=== PATIENT | female | born 1975 | race Caucasian/White ===

== ENCOUNTER 2019-10-14 07:01 | Emergency (ER) | payer MEDICAID, SELFPAY ==
[2019-10-14 07:29] VITALS: BP 186/109; PULSE 103; RESP 18; TEMP 37; O2SAT 97; BMI 43.3
[2019-10-14 07:45] LABS: Chloride 104 mmol/L (98-107); Potassium 3.9 mmoL/L (3.5-5.1); Sodium 139 mmol/L (136-145)
[2019-10-14 07:46] LABS: Basophils % 0.3 % (0.1-2.0); Eosinophils # 0.3 K/mm3 (0.0-0.4); Eosinophils % 2.1 % (0.1-12.0); Hematocrit 37.2 % (37.0-47.0); Hemoglobin 11.4 g/dL (12.2-16.2); Lymphocytes # 1.9 K/mm3 (0.7-4.5); Lymphocytes % 13.1 % (10-50); Mean Corpuscular HGB Conc 30.6 g/dL (31.8-35.4); Mean Corpuscular Hemoglobin 27.5 pg (27.0-31.2); Mean Corpuscular Volume 89.8 fl (81-99); Mean Platelet Volume 7.7 fl (7.4-10.4); Monocytes # 0.4 K/mm3 (0.1-1.0); Monocytes % 2.7 % (1.7-9.3); Neutrophils # 11.9 K/mm3 (1.8-7.8); Neutrophils % 81.8 % (37.0-80.0); Platelet Count 459 K/mm3 (142-424); Red Blood Count 4.15 M/mm3 (4.20-5.40); Red Cell Distribution Width 14.1 % (11.5-17.5); White Blood Count 14.5 K/mm3 (4.8-10.8)
--- NOTE | 2019-10-14 07:47 | PC.NURSE ---
Called [facility] and spoke with Jacinta in medical records, she will be sending pt records.
[2019-10-14 07:48] LABS: Alanine Aminotransferase 12 U/L (12-78); Albumin Level 3.9 g/dl (3.5-5.0); Albumin/Globulin Ratio 1.1 (1.1-1.8); Alkaline Phosphatase 125 U/L (38-126); Anion Gap 10.9 mEq/L (5-15); Aspartate Amino Transferase 17 U/L (14-36); Blood Urea Nitrogen 14 mg/dl (7-17); Carbon Dioxide 28 mmol/L (22.0-30.0); Creatinine Clearance Estimated 63 mL/min (50-200); Estimated Glomerular Filt Rate 68 ml/min (>60); GFR (African American) 82 ML/MIN (>60); Globulin 3.4 g/dL (1.3-3.2); Total Protein,Serum 7.3 g/dl (6.3-8.2)
[2019-10-14 07:49] LABS: Calcium 9.7 mg/dl (8.4-10.2); Glucose 100 mg/dl (74-100)
[2019-10-14 07:51] LABS: Lactic Acid 0.9 mmol/L (0.7-2.1)
[2019-10-14 07:54] LABS: C-Reactive Protein 185.1 mg/L (0-4)
[2019-10-14 08:11] LABS: Bilirubin,Total 0.1 mg/dl (0.2-1.3)
--- NOTE | 2019-10-14 08:18 | PC.NURSE ---
pt eating breakfast at this time.
--- NOTE | 2019-10-14 08:25 | PC.NURSE ---
Called [facility] back d/t not receiving medical records.
[2019-10-14 08:32] LABS: Erythrocyte Sedimentation Rate 128 mm/hr (0-20)
--- NOTE | 2019-10-14 08:47 | PC.NURSE ---
Spoke with Medical records again at [facility] and austyn stated that she would be printing and manually sending it at this time.
[2019-10-14 08:57] VITALS: BP 162/83; PULSE 97; O2SAT 100
--- NOTE | 2019-10-14 09:38 | PC.NURSE ---
Calling [facility] at this time for hospitalist, someone will return call per cd reactor operator head.
--- NOTE | 2019-10-14 09:48 | PC.NURSE ---
Dr Hendrix returned call.
--- NOTE | 2019-10-14 09:55 | PC.NURSE ---
calling [facility] at this time for transfer, pt has agreed to try them again after previously declining.
--- NOTE | 2019-10-14 10:02 | PC.NURSE ---
[facility] to return call.
--- NOTE | 2019-10-14 10:07 | PC.NURSE ---
Dr Monahan at [facility] returned call
--- NOTE | 2019-10-14 10:10 | PC.NURSE ---
pt refusing to go to [facility] by ambulance. pt tearful
--- NOTE | 2019-10-14 10:15 | PC.NURSE ---
dr pardo at bedside
--- NOTE | 2019-10-14 10:15 | HMH.EDGENADL ---
ED Disposition Clinical Impression: Cellulitis of both lower extremities Disposition: Xfer Short-Term Hosp Condition on Discharge: Good Instructions: DI for Chronic Pain -- Adult Additional Instructions: I called [facility] in [place] and got patient accepted contingent on the problem she did not want to go back to [facility]. They recommended that I call [facility] in [place] considering that is where she had her care. I did call [facility] in [place] spoke to vascular surgery and I also spoke to the hospitalist and they agreed to go ahead and accept the patient with admission and vascular surgery would consult. However once I presented this information to the patient she refused to go by ambulance refused IV antibiotics and also refused IV pain medicine and signed out AGAINST MEDICAL ADVICE. Referrals: Provider,Referral, [Primary Care Provider] - - Critical Care Critical Care Time: No Attestation: On 10/14/19, the high probability of a clinically significant, sudden or life threatening deterioration of the following system(s) required my full and direct attention, intervention and personal management. The time I documented below is in addition to time spent performing reported procedures but includes the following listed in this critical care notation. Medical Decision Making - Jakob Inquiry Pt receiving controlled substance: No Vital Signs: 10/14/19 07:29 10/14/19 08:57 Temperature 98.6 F Temperature Source Oral Pulse Rate [Left Radial] 103 H 97 H Respiratory Rate 18 Blood Pressure [Right Arm] 186/109 H 162/83 H Blood Pressure Mean [Right Arm] 134 109 Blood Pressure Source [Right Arm] Automatic Cuff Blood Pressure Position [Right Arm] Sitting Sitting 02 Sat by Pulse Oximetry 97 100 Oxygen Delivery Method Room Air Room Air - Lab Data Lab Results 10/14/19 07:25: WBC 14.5 H, RBC 4.15 L, Hgb 11.4 L, Hct 37.2, MCV 89.8, MCH 27.5, MCHC 30.6 L, RDW 14.1, Plt Count 459 H, MPV 7.7, Neut % (Auto) 81.8 H, Lymph % (Auto) 13.1, [place] % (Auto) 2.7, Eos % (Auto) 2.1, Baso % (Auto) 0.3, Neut # (Auto) 11.9 H, Lymph # (Auto) 1.9, [place] # (Auto) 0.4, Eos # (Auto) 0.3, Baso # (Auto) 0.0 10/14/19 07:25: Sodium 139, Potassium 3.9, Chloride 104, Carbon Dioxide 28, Anion Gap 10.9, BUN 14, Creatinine 0.90, Estimated Creat Clear 63, Estimated GFR 68, Est GFR ( Amer) 82, Glucose 100, Calcium 9.7, Total Bilirubin 0.1 L, AST 17, ALT 12, Alkaline Phosphatase 125, C-Reactive Protein 185.1 H, Total Protein 7.3, Albumin 3.9, Globulin 3.4 H, Albumin/Globulin Ratio 1.1 10/14/19 07:25: Lactate 0.9 10/14/19 07:25: ESR 128 H Result diagrams: 10/14/19 07:25 10/14/19 07:25 Orders (Tests/Meds): ORDERS Category Date Time Status Blood Culture Stat Micro 10/14/19 07:25 Received General Adult HPI - General Chief complaint: PAIN Stated complaint: possible infection in both legs Time Seen by Provider: 10/14/19 10:15 Mode of Arrival: Ambulatory Source of Information: Patient Limitations: No Limitations Description of Symptoms (Recalled from ER Triage Doc. by RN): to ed per pvt car with c/o myriam lower leg pain and drainage. pt with hx of open areas to legs x years seen at [facility] in [place]. pt states she started with increased pain, drainage and foul odor x 1 week. pt states she has been taking tylenol and motrin at home with no relief - History of Present Illness HPI narrative: 44-year-old female presents with bilateral extremity pain along with open sores that are actively leaking. She states that this problem has been going on for quite some time. She also states that she was recently seen at [facility] in [place] and they treated with some IV antibiotics and did some minor debridements on the tissue. Patient did not follow-up outpatient likely for continued antibiotic therapy. Walking into the room there was an extremely noxious odor, and her areas on her legs are green and black. With weeping discharge. She st
--- NOTE | 2019-10-14 10:46 | PC.NURSE ---
pt left dept ama
[2019-10-14 10:47] VITALS: BP 169/102; PULSE 100; RESP 18; TEMP 37
== END 2019-10-14 10:48 | disposition left against medical advice (07) ==
PROVIDERS: Emergency Provider Emergency Medicine
DX: L03.115 Cellulitis of right lower limb (principal); L03.116 Cellulitis of left lower limb; I10 Essential (primary) hypertension; F17.210 Nicotine dependence, cigarettes, uncomplicated; Z88.0 Allergy status to penicillin; Z88.1 Allergy status to other antibiotic agents; Z88.5 Allergy status to narcotic agent; Z88.8 Allergy status to other drugs, medicaments and biological substances; Z79.899 Other long term (current) drug therapy
CPT/HCPCS: 80053; 83605; 85025; 85651; 86140; 87040; 96374; 99283

== ENCOUNTER → 2019-11-16 15:50 | Outpatient (CLI) | payer OTHER, SELFPAY ==
[2019-11-16 16:08] LABS: Basophils % 0.4 % (0.1-2.0); Eosinophils # 0.2 K/mm3 (0.0-0.4); Eosinophils % 2.1 % (0.1-12.0); Hemoglobin 11.4 g/dL (12.2-16.2); Lymphocytes % 20.8 % (10-50); Mean Corpuscular HGB Conc 30.9 g/dL (31.8-35.4); Mean Corpuscular Hemoglobin 27.3 pg (27.0-31.2); Mean Corpuscular Volume 88.4 fl (81-99); Mean Platelet Volume 7.7 fl (7.4-10.4); Monocytes # 0.5 K/mm3 (0.1-1.0); Monocytes % 4.6 % (1.7-9.3); Neutrophils % 72.1 % (37.0-80.0); Platelet Count 269 K/mm3 (142-424); Red Blood Count 4.19 M/mm3 (4.20-5.40); Red Cell Distribution Width 15.4 % (11.5-17.5); White Blood Count 9.7 K/mm3 (4.8-10.8)
[2019-11-16 16:45] LABS: Chloride 102 mmol/L (98-107); Potassium 4.4 mmoL/L (3.5-5.1); Sodium 136 mmol/L (136-145)
[2019-11-16 16:48] LABS: Alanine Aminotransferase 15 U/L (12-78); Albumin Level 4.5 g/dl (3.5-5.0); Albumin/Globulin Ratio 1.9 (1.1-1.8); Alkaline Phosphatase 104 U/L (38-126); Anion Gap 10.4 mEq/L (5-15); Aspartate Amino Transferase 17 U/L (14-36); Bilirubin,Total 0.2 mg/dl (0.2-1.3); Blood Urea Nitrogen 22 mg/dl (7-17); Calcium 9.7 mg/dl (8.4-10.2); Carbon Dioxide 28 mmol/L (22.0-30.0); Estimated Glomerular Filt Rate 54 ml/min (>60); GFR (African American) 65 ML/MIN (>60); Globulin 2.4 g/dL (1.3-3.2); Glucose 100 mg/dl (74-100); Total Protein,Serum 6.9 g/dl (6.3-8.2)
[2019-11-16 17:19] LABS: Thyroid Stimulating Hormone 5.32 uIU/mL (0.465-4.68)
[2019-11-18 08:42] LABS: Vitamin D 25 Hydroxy 10.4 ng/mL (30.0-100.0)
== END ==
PROVIDERS: Visit Provider Nurse Practitioner Family
DX: I87.2 Venous insufficiency (chronic) (peripheral) (principal); E77.8 Other disorders of glycoprotein metabolism; G89.29 Other chronic pain
CPT/HCPCS: 36415; 80053; 82652; 84443; 85025

== ENCOUNTER → 2019-11-28 10:22 | Outpatient (POV) | payer OTHER, SELFPAY ==
[2019-11-28 11:05] VITALS: BP 140/85; PULSE 85; RESP 18; TEMP 36.8; O2SAT 98; BMI 47.5
--- NOTE | 2019-11-28 12:51 | HMH.PMCON ---
Assessment and Plan (1) Skin ulcer of multiple sites Current visit: No Status: Chronic Category: Medical Code(s): L98.499 - Non-pressure chronic ulcer of skin of other sites with unspecified severity - Assessment and plan all Dx Assessment and Plan for all problems:: I encouraged the patient to keep her appointment with wound care. I discussed with her that we would not be prescribing any narcotic medications. Patient again tearful. I did give her information in regards to other clinics that do medication management. Dr. Rodriguez has reviewed this note and agrees with this plan of care. This note was dictated using voice recognition software and may contain errors or omissions HPI - Data of Consult Consult date: 11/28/19 Requesting Physician: Nguyen Pedro APRN Primary Care Provider: Alfred Figueroa MD - Consult Narrative Reason for consult: Bilateral lower extremity pain secondary to wounds History of present illness: Ms. Serna is a 44 year old female who presents today for consultation in regards to her pain secondary to bilateral open wounds. Patient states she has had these since 2015. Patient states that she needs medication in order to manage the pain. Patient states the pain is so bad that she cannot eat or drink. She rates her pain a 9 out of 10. She was hospitalized back in June where she states she received Dilaudid every 3 hours, OxyContin 30 mg twice a day and oxycodone 5 mg every 4 hours as needed for pain along with Xanax. She states that this was very beneficial for her. Patient is here today wanting narcotic medications. I discussed with her that we would not be providing that. Patient is in a Suboxone clinic. She states that they are aware of her request in regards to narcotic medication and they have okayed it. Patient has had a venous flow test with the results showing no circulatory problems. Patient does have a long list of noncompliance in regards to wound care, podiatry. Patient was seen in a wound care clinic in [place] but never returned. She has been set up for wound care in our hospital tomorrow. I encouraged her to keep that appointment. She was seen by Dr. Nieves in the past however she did not keep any of her follow-up appointments. Patient states that she was given the option of potential amputation however she did not want to go through with that. Patient is very tearful today. She states she does not know why she is here if she is not getting a narcotic medication. Again she is in a Suboxone clinic. She is on gabapentin and she states she cannot take any Lyrica or other medications in regards to neuropathy or neuropathic pain CC: Nguyen Pedro APRN [facility] History I have reviewed the patient's past medical history: Yes Medical History: Reports:: Hypertension Denies:: Diabetes Mellitus Type 1, Diabetes Mellitus Type 2 *Have you ever received a pneumonia vaccine?: Yes *Have you received a flu vaccine this season?: Yes - *Social History Smoking Status: Current every day smoker Tobacco Type: cigarettes # Packs/Day (cigarettes): 1 Alcohol Intake: never Substance Use Type: prescription drug Last Used Substance: unknown *Occupational Status:: other Housing: house Household Members: other *Travel in the last 8 weeks: None Family Hx:: Non-contributory Review of Systems - Review of Systems ROS General: no recent weight change, no fever, no sleep disturbances Respiratory: no cough, no shortness of air, no recurring pulmonary infections Cardiovascular/Peripheral Vascular: No chest pain, No palpitations, no edema, no shortness of breath. Gastrointestinal: no new onset incontinence, normal bowel movements reported Genitourinary: no new onset incontinence Musculoskeletal: Pain bilateral lower extremities Psychiatric: Tearful, depressed Neurological: [denies new onset weakness in extremities], [denies new onset balance issues] Meds Home Medications Me
== END ==
PROVIDERS: PCP Internal Medicine Adolescent Medicine; Visit Provider Clinical Nurse Specialist Family Health
DX: L98.499 Non-pressure chronic ulcer of skin of other sites with unspecified severity (principal)
CPT/HCPCS: 99202

== ENCOUNTER 2020-02-15 19:17 | Emergency (ER) | payer OTHER, SELFPAY ==
[2020-02-15 19:18] VITALS: BP 127/83; PULSE 77; RESP 16; TEMP 37.3; O2SAT 96; BMI 44.2
--- NOTE | 2020-02-15 19:24 | PC.NURSE ---
pt refusing to get into bed and wants to stay in the wheelchair at this time.
--- NOTE | 2020-02-15 19:31 | PC.NURSE ---
pt refusing IV stick and lab draws at this time.
--- NOTE | 2020-02-15 19:36 | PC.NURSE ---
stated pt couldnt be cleared to go home if pt wouldnt let staff adequately assess her and get labs. pt stated that's fine ill sign myself out AMA and follow up with Dr. Figueroa in the morning.
[2020-02-15 19:48] VITALS: BP 129/91; PULSE 81; RESP 16; TEMP 37; O2SAT 96
== END 2020-02-15 19:49 | disposition left against medical advice (07) ==
LOC: ER 19:23
PROVIDERS: Emergency Provider Emergency Medicine; PCP Internal Medicine Adolescent Medicine
DX: Z53.21 Procedure and treatment not carried out due to patient leaving prior to being seen by health care provider (principal); L98.499 Non-pressure chronic ulcer of skin of other sites with unspecified severity
CPT/HCPCS: 99281

== ENCOUNTER 2020-02-25 00:34 | Emergency (ER) | payer OTHER, SELFPAY ==
[2020-02-25 01:00] VITALS: BP 178/90; PULSE 102; RESP 17; TEMP 36.9; O2SAT 97; BMI 38.4
[2020-02-25 01:22] VITALS: BP 173/101; PULSE 100; RESP 17; O2SAT 96
[2020-02-25 01:34] LABS: Alanine Aminotransferase 16 U/L (12-78); Albumin Level 3.6 g/dl (3.5-5.0); Alkaline Phosphatase 145 U/L (38-126); Anion Gap 12.3 mEq/L (5-15); Aspartate Amino Transferase 20 U/L (14-36); Bilirubin,Total 0.5 mg/dl (0.2-1.3); Blood Urea Nitrogen 13 mg/dl (7-17); Calcium 9.9 mg/dl (8.4-10.2); Carbon Dioxide 29 mmol/L (22.0-30.0); Chloride 98 mmol/L (98-107); Creatinine Clearance Estimated 180 mL/min (50-200); Estimated Glomerular Filt Rate 109 ml/min (>60); GFR (African American) 131 ML/MIN (>60); Globulin 3.5 g/dL (1.3-3.2); Glucose 135 mg/dl (74-100); Lactic Acid 1.4 mmol/L (0.7-2.1); Potassium 4.3 mmoL/L (3.5-5.1); Sodium 135 mmol/L (136-145); Total Protein,Serum 7.1 g/dl (6.3-8.2)
[2020-02-25 01:35] LABS: Basophils % 0.3 % (0.1-2.0); Eosinophils # 0.2 K/mm3 (0.0-0.4); Eosinophils % 1.3 % (0.1-12.0); Hematocrit 32.4 % (37.0-47.0); Hemoglobin 10.3 g/dL (12.2-16.2); Lymphocytes # 2.6 K/mm3 (0.7-4.5); Lymphocytes % 16.9 % (10-50); Mean Corpuscular HGB Conc 31.8 g/dL (31.8-35.4); Mean Corpuscular Hemoglobin 29.1 pg (27.0-31.2); Mean Corpuscular Volume 91.5 fl (81-99); Mean Platelet Volume 7.5 fl (7.4-10.4); Monocytes # 0.7 K/mm3 (0.1-1.0); Monocytes % 4.6 % (1.7-9.3); Neutrophils # 11.7 K/mm3 (1.8-7.8); Neutrophils % 76.9 % (37.0-80.0); Platelet Count 425 K/mm3 (142-424); Red Blood Count 3.55 M/mm3 (4.20-5.40); Red Cell Distribution Width 16.2 % (11.5-17.5); White Blood Count 15.2 K/mm3 (4.8-10.8)
[2020-02-25 01:48] LABS: MANUAL DIFFERENTIAL MANUAL DIFFERENTIAL (MANUAL DIFF)
[2020-02-25 01:59] VITALS: BP 163/108; PULSE 110; O2SAT 94
--- NOTE | 2020-02-25 02:03 | CT_ITS ---
PROCEDURE: CT FEMUR RT W CON Referring Doctor: Rishi Rascon Patient Age:44Y CLINICAL HISTORY: abscess rule out Stitches at amputation site oozing and suspect infection clinically COMPARISON: No exams were available for comparison TECHNIQUE: Helical CT scanning performed from the pelvis through entire remaining right thigh. No the IV contrast The helical axial images obtained with axial sagittal and coronal reformats. All CT scans at the facility use one or more dose reduction, viz: automated exposure control, ma/kV adjustment per patient size (including targeted exams where dose is matched to indication, i.e. head), or iterative reconstruction technique. FINDINGS: . status post above knee amputation of right femur.. Minimal bony callus formation is seen circumferentially overlying femoral stump. With Wispy developing callus most evident overlying posterior medial aspect of the margin of the amputated femur. There is appear moderate amount of amount of edema and induration at the surgical bed that could reflect developing phlegmonous changes. These taper leading towards skin but with only minimal wispy edema appearance beneath the skin and wound.. No dehiscence of wound appreciated on CT; no well-defined drainable fluid collection. However of further evaluation with other modalities including ultrasound might be beneficial in follow-up Diffuse caeo-hi-[id number] diffuse subcutaneous edema most evident distally at the 5 but also seen extending along the lateral aspect of the mid thigh laterally and with only minimal edema at the superficial SQ tissues of lateral, overlying hip.. Generous size patient with generous abundant subcutaneous adipose throughout the thigh and elsewhere. 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 Minimal bony callus formation circumferentially overlying the distal femoral stump. Moderate to large amount of edema and induration at surgical bed noted could reflect developing phlegmonous changes in this patient with clinical suspicion for infection but no well-defined/discrete drainable fluid collection No definite osseous destruction or erosion however osteomyelitis cannot be excluded. Further evaluation with contrast-enhanced MRI suggested/recommended Dictated by: Az Winters MD 02/26/2020 10:34 Az Winters MD in [place] 02/26/2020 10:34
--- NOTE | 2020-02-25 02:03 | HMH.EDSKAF ---
ED Disposition Clinical Impression: Wound myiasis, SIRS (systemic inflammatory response syndrome), Elevated erythrocyte sedimentation rate, Elevated C-reactive protein Disposition: Xfer Short-Term Hosp Condition on Discharge: Fair Referrals: Alfred Figueroa MD [Primary Care Provider] - - Critical Care Critical Care Time: No Attestation: On 02/25/20, the high probability of a clinically significant, sudden or life threatening deterioration of the following system(s) required my full and direct attention, intervention and personal management. The time I documented below is in addition to time spent performing reported procedures but includes the following listed in this critical care notation. Medical Decision Making - Medical Records Medical records reviewed: Yes: I reviewed the patient's medical records. - Jakob Inquiry Pt receiving controlled substance: No Vital Signs: 02/25/20 01:00 02/25/20 01:22 02/25/20 01:59 Temperature 98.5 F Temperature Source Oral Pulse Rate [Right Brachial] 102 H 100 H 110 H Respiratory Rate 17 17 Blood Pressure [Right Arm] 178/90 H 173/101 H 163/108 H Blood Pressure Mean [Right Arm] 119 125 126 Blood Pressure Source [Right Arm] Automatic Cuff Automatic Cuff Automatic Cuff Blood Pressure Position [Right Arm] Sitting Sitting Sitting 02 Sat by Pulse Oximetry 97 96 94 L Oxygen Delivery Method Room Air Room Air Room Air 02/25/20 03:27 Temperature Temperature Source Pulse Rate [Right Brachial] 104 H Respiratory Rate Blood Pressure [Right Arm] 152/91 H Blood Pressure Mean [Right Arm] 111 Blood Pressure Source [Right Arm] Automatic Cuff Blood Pressure Position [Right Arm] Sitting 02 Sat by Pulse Oximetry 91 L Oxygen Delivery Method Room Air - Lab Data Lab results reviewed: Yes: I reviewed the patient's lab results. Lab Results 02/25/20 00:50: WBC 15.2 H, RBC 3.55 L, Hgb 10.3 L, Hct 32.4 L, MCV 91.5, MCH 29.1, MCHC 31.8, RDW 16.2, Plt Count 425 H, MPV 7.5, Neut % (Auto) 76.9, Lymph % (Auto) 16.9, [place] % (Auto) 4.6, Eos % (Auto) 1.3, Baso % (Auto) 0.3, Neut # (Auto) 11.7 H, Lymph # (Auto) 2.6, [place] # (Auto) 0.7, Eos # (Auto) 0.2, Baso # (Auto) 0.0, Total Counted 100, Neutrophils % (Manual) 77 H, Lymphocytes % (Manual) 16, Monocytes % (Manual) 7, Platelet Estimate Normal, RBC Morphology Normal 02/25/20 00:50: Sodium 135 L, Potassium 4.3, Chloride 98, Carbon Dioxide 29, Anion Gap 12.3, BUN 13, Creatinine 0.60, Estimated Creat Clear 180, Estimated GFR 109, Est GFR ( Amer) 131, Glucose 135 H, Calcium 9.9, Total Bilirubin 0.5, AST 20, ALT 16, Alkaline Phosphatase 145 H, Total Protein 7.1, Albumin 3.6, Globulin 3.5 H, Albumin/Globulin Ratio 1.0 L 02/25/20 00:50: Lactate 1.4 02/25/20 00:50: ESR > 140 H 02/25/20 00:50: C-Reactive Protein 113.5 H Result diagrams: 02/25/20 00:50 02/25/20 00:50 Orders (Tests/Meds): ORDERS Category Date Time Status CT femur RT w con Stat Cat Scan 02/25/20 02:03 Taken Blood Culture Stat Micro 02/25/20 00:50 Received - CT Data CT Scan: Other (rt lower leg ) Time Received: 04:[address] Reviewed: Yes: I have viewed the radiologist's interpretation Preliminary Findings: Abnormal (see report ) - Physician Consults Physician Consulted: dr fox Reason -: Transfer to another facilty Skin/Abscess/FB HPI - General Chief complaint: Recheck/Abnormal Lab/Rx Stated complaint: Post-op amputee of right leg, magots in wound Time Seen by Provider: 02/25/20 01:35 Mode of Arrival: Wheelchair Source of Information: Patient, Relative, Medical Record Limitations: No Limitations Description of Symptoms (Recalled from ER Triage Doc. by RN): Patient reports she had a right leg amputation on january 28 at [facility]. Daughter reports when she went to change her dressing about 20 mins ago notices that she has maggots along the incision sight. Patient reports this morning when home health was there everything was fine. Patient denies any fever, pain or othe
[2020-02-25 02:07] LABS: Lymphocytes % 16 % (10-50); Monocytes % 7 % (2-9); Neutrophils % 77 % (42-76); Platelet Estimate Normal; RBC Morphology Normal; Total Cells Counted 100
[2020-02-25 02:35] LABS: C-Reactive Protein 113.5 mg/L (0-4)
[2020-02-25 02:56] LABS: Erythrocyte Sedimentation Rate > 140 mm/hr (0-20)
[2020-02-25 03:27] VITALS: BP 152/91; PULSE 104; O2SAT 91
--- NOTE | 2020-02-25 03:59 | PC.NURSE ---
sent page out for surgeon refrigeration tech
[2020-02-25 04:04] VITALS: BP 158/96; PULSE 100; O2SAT 95
--- NOTE | 2020-02-25 04:30 | PC.NURSE ---
ABD pads placed over suture line and stump wrapped with kerlex.
[2020-02-25 04:31] VITALS: BP 158/96; PULSE 100; RESP 17; TEMP 36.9; O2SAT 96
== END 2020-02-25 04:35 | disposition short-term general hospital (02) ==
PROVIDERS: Emergency Provider Emergency Medicine; PCP Internal Medicine Adolescent Medicine
DX: B87.1 Wound myiasis (principal); Z89.611 Acquired absence of right leg above knee; R65.10 Systemic inflammatory response syndrome (SIRS) of non-infectious origin without acute organ dysfunction; R70.0 Elevated erythrocyte sedimentation rate; R79.82 Elevated C-reactive protein (CRP); I10 Essential (primary) hypertension; Z88.0 Allergy status to penicillin; Z88.5 Allergy status to narcotic agent; Z88.8 Allergy status to other drugs, medicaments and biological substances; F17.210 Nicotine dependence, cigarettes, uncomplicated; Z79.899 Other long term (current) drug therapy
CPT/HCPCS: 73701; 80053; 83605; 85007; 85025; 85651; 86140; 87040; 99284

== ENCOUNTER 2020-03-14 12:54 | Emergency (ER) | payer OTHER, SELFPAY ==
[2020-03-14 13:17] VITALS: BP 128/73; PULSE 87; RESP 18; O2SAT 100; BMI 41.5
--- NOTE | 2020-03-14 13:29 | HMH.EDUTC ---
[facility] [place] Condition on Dis[place]: Good Time of Disposition: 13:33 Clinical Impression: Skin infection, Left against medical advice Disposition: Home, Self-Care Referrals: Alfred Figueroa MD [Primary Care Provider] - Medical Decision Making - Jakob Inquiry Pt receiving controlled substance: No Jakob was queried for this patient: No Vital Signs: 03/14/20 13:17 03/14/20 13:32 03/14/20 15:21 Pulse Rate [Right Brachial] 87 88 71 Respiratory Rate 18 18 Blood Pressure [Right Arm] 128/73 150/66 H 138/85 Blood Pressure Mean [Right Arm] 91 94 102 Blood Pressure Source [Right Arm] Automatic Cuff Automatic Cuff Blood Pressure Position [Right Arm] Sitting Sitting 02 Sat by Pulse Oximetry 100 98 99 Oxygen Delivery Method Room Air Room Air Room Air Orders (Tests/Meds): ED MEDICATIONS Discontinued Medications Generic Name Dose Route Start Last Admin Trade Name Freq PRN Reason Stop Dose Admin Ioversol 110 ml 03/14/20 14:39 03/14/20 14:41 Rad-Optiray 350 100ml Vial IV 03/14/20 14:40 110 ml ONCE ONE Administration Protocol Sodium Chloride 10 ml 03/14/20 14:39 03/14/20 14:41 Rad-Saline Flush 10ml Syringe IV 03/14/20 14:40 10 ml ONCE ONE Administration Sodium Chloride 50 ml 03/14/20 14:39 03/14/20 14:41 Rad-Ns 50ml Vial IV 03/14/20 14:40 50 ml ONCE ONE Administration ORDERS Category Date Time Status Covid-19 Nasal PCR Sendout Doc Stat Lab 03/14/20 15:36 Ordered Medical Decision Narrative: Spoke with Dr Pena and he viewed the wound and discoloration and agreed patient to be transferred to the ED for further work up and evaluation Patient was transferred to room 11 ([place]) Patient states that she does not want any blood work done nor a PICC line put in she states that she is on oral antibiotics. Patient states she does not want a wait for the CT results. I told the patient that given the fact that what happened with her previous leg with an [id number] amputation and with the ulceration she has on the anterior part of her leg that she really needs to be seen by vascular surgery and that I would like to transfer her to another facility patient refused she said her grandchildren are waiting outside and she has to go. (Bo Pena) [facility] [place] - General Mode of Arrival: Ambulatory Source of Information: Patient Limitations: No Limitations Description of Symptoms (Recalled from Triage Doc. by RN): PATIENT C/O INFECTION TO LEFT LOWER LEG. PATIENT IS CURRENTLY ON 2 DIFFERENT ANTIBIOTICS HEENT Symptoms (Recalled from RN notes): No Resp Symptoms (Recalled from RN notes): No Skin Symptoms (Recalled from RN notes): Yes MS Symptoms (Recalled from RN notes): Yes Functional Status (Recalled from RN notes): WNL - History of Present Illness Provider Complaint: Patient states that Home Health Nurse and daughter wanted her to get her left leg checked out because she had a skin graph done the end of Feb and it looks infected, draining yellowish colored drainage and her lower leg was looking purple in color States that she thinks it looks ok but they was concerned because the purple discoloration started around the wound and has moved down her lower leg and now to her foot and toes also States that she has several ulcerations on her foot that are trying to heal and everyone was concerned that she may loose this leg as she had an AKA on her right leg the end of January States that she is an every day smoker and daughter reports has been smoking more since she got out of the hospital - Worker's Comp Is this a Worker's Comp case?: No - General Stated complaint: check leg for infection Time Seen by Provider: 03/14/20 13:30 - Related Data Home Medications Medication Instructions Recorded Confirmed Albuterol Sulfate [Ventolin HFA 2 puff PO NEEDED PRN 05/22/18 10/14/19 Inhaler] Buprenorphine HCl/Naloxone HCl 1 each SL BID 05/22/18 10/14/19 [Bu
[2020-03-14 13:32] VITALS: BP 150/66; PULSE 88; RESP 18; O2SAT 98; BMI 41.6
--- NOTE | 2020-03-14 13:35 | CT_ITS ---
Procedure: CT ANGIO LE BI CLINICAL HISTORY: wound to lower limb Wound to left lower leg with infection with increased redness COMPARISON: CT CT FEMUR RT W CON from 02/25/2020 TECHNIQUE: IV Contrast: 100ml Optiray 350 Axial images obtained with sagittal and coronal reformats. All CT scans at the facility use one or more dose reduction, viz: automated exposure control, ma/kV adjustment per patient size (including targeted exams where dose is matched to indication, i.e. head), or iterative reconstruction technique. FINDINGS: The study was ordered as a CT angiogram however, the IV malfunctioned during the contrast injection and no additional IV could be obtained. The study is therefore not performed as the a CT angiogram. There is mild subcutaneous edema in the hips. Surgical scarring is noted along the right lateral thigh. There has been a prior above the knee amputation on the right. There is some bony fragmentation of the distal aspect of the femur. There is soft tissue gas at the amputation site with some prominent soft tissue density also distal to the distal amputation site. No large fluid collections are evident.. There is some bony fragmentation of the distal aspect of the femur. This was present on the previous study is well. There was no soft tissue gas evident at that time. IMPRESSION: Status post above the knee amputation. Prominent soft tissue density is present at the amputation site along with bony fragmentation. Soft tissue density could be related to phlegmonous changes. There is now evidence of gas at the distal aspect of the bony portion of the femur at the amputation site which may be related to gas-forming infection or recent intervention/opening of the amputation site. Dictated by: Juvenal Devine MD 03/14/2020 15:23 Juvenal Devine MD in [place] 03/14/2020 15:23
--- NOTE | 2020-03-14 13:49 | PC.NURSE ---
Patient taken to radiology.
--- NOTE | 2020-03-14 14:33 | PC.NURSE ---
VS delayed due to pt still being in rad.
--- NOTE | 2020-03-14 15:16 | PC.NURSE ---
Patient refusing PICC line stating she is not staying in the hospital. Also states she doesn't understand why labs haven't been drawn on her and complaint of her IV hurting her and wanting it removed. (Multiple attempts to get IV before getting one) Lab notified and requested to try to get labs and PICC line nurse notified of patient refusal.
[2020-03-14 15:21] VITALS: BP 138/85; PULSE 71; O2SAT 99
--- NOTE | 2020-03-14 16:42 | PC.NURSE ---
Patient requesting to leave AMA. states that her grandchildren are sitting out in the hot car and she doesn't want to wait for her test results. Dr. Pena spoke with patient and she signed the AMA and left.
[2020-03-14 16:43] VITALS: BP 138/85; PULSE 71; RESP 18; TEMP 36.7; O2SAT 99
== END 2020-03-14 16:44 | disposition home or self-care (01) ==
LOC: UTC 12:59 → ER 13:31
PROVIDERS: Emergency Provider Family Medicine; PCP Internal Medicine Adolescent Medicine
DX: L03.116 Cellulitis of left lower limb (principal); I10 Essential (primary) hypertension; F17.210 Nicotine dependence, cigarettes, uncomplicated; Z88.0 Allergy status to penicillin; Z88.5 Allergy status to narcotic agent; Z88.8 Allergy status to other drugs, medicaments and biological substances
CPT/HCPCS: 73701; 99282; Q9967

== ENCOUNTER → 2020-12-03 20:27 | Outpatient (CLI) | payer OTHER, SELFPAY ==
[2020-12-03 20:43] LABS: Basophils # 0.1 K/mm3 (0-0.2); Basophils % 0.9 % (0.1-2.0); Eosinophils # 0.2 K/mm3 (0.0-0.4); Eosinophils % 2.6 % (0.1-12.0); Hematocrit 39.2 % (37.0-47.0); Hemoglobin 12.9 g/dL (12.2-16.2); Lymphocytes # 2.2 K/mm3 (0.7-4.5); Lymphocytes % 24.7 % (10-50); Mean Corpuscular HGB Conc 32.8 g/dL (31.8-35.4); Mean Corpuscular Hemoglobin 27.5 pg (27.0-31.2); Mean Platelet Volume 8.4 fl (7.4-10.4); Monocytes # 0.5 K/mm3 (0.1-1.0); Monocytes % 5.4 % (1.7-9.3); Neutrophils # 5.8 K/mm3 (1.8-7.8); Neutrophils % 66.4 % (37.0-80.0); Platelet Count 297 K/mm3 (142-424); Red Blood Count 4.67 M/mm3 (4.20-5.40); Red Cell Distribution Width 14.7 % (11.5-17.5); White Blood Count 8.8 K/mm3 (4.8-10.8)
[2020-12-03 20:58] LABS: Alanine Aminotransferase 12 U/L (12-78); Albumin/Globulin Ratio 1.4 (1.1-1.8); Alkaline Phosphatase 111 U/L (38-126); Aspartate Amino Transferase 21 U/L (14-36); Bilirubin,Total 0.4 mg/dl (0.2-1.3); Blood Urea Nitrogen 9 mg/dl (7-17); Calcium 9.1 mg/dl (8.4-10.2); Carbon Dioxide 30 mmol/L (22.0-30.0); Chloride 103 mmol/L (98-107); Cholesterol 171 mg/dl (140-200); Estimated Glomerular Filt Rate 54 ml/min (>60); GFR (African American) 65 ML/MIN (>60); Globulin 2.8 g/dL (1.3-3.2); Glucose 114 mg/dl (74-100); HDL Cholesterol 43 mg/dl (40-60); Sodium 138 mmol/L (136-145); Total Protein,Serum 6.8 g/dl (6.3-8.2); Triglycerides 142 mg/dl (30-150); VLDL Cholesterol 28 mg/dL (0-40)
[2020-12-03 21:09] LABS: Direct LDL Cholesterol 90.95 mg/dL (100-129)
== END ==
PROVIDERS: Visit Provider Internal Medicine Adolescent Medicine
DX: I10 Essential (primary) hypertension (principal); G54.6 Phantom limb syndrome with pain; G56.21 Lesion of ulnar nerve, right upper limb
CPT/HCPCS: 80053; 80061; 84443; 85025